=== PATIENT | female | born 1950 ===

== ENCOUNTER 2017-04-01 08:17 | Day surgery (SDC) | payer MEDICARE ==
[~2017-04-01 08:17] MED LIST: Buffered Lidocaine 1% SYRIN* 5 ML/SYR SYRINGE ONE; Famotidine IV* 10 MG/ML 2 ML (20 mg) IV ONE; Famotidine IV* 10 MG/ML 2 ML (20 mg) ONE; Morphine INJ* 2 MG/ML 1 ML SYRINGE IV PRN; PROCHLORPERAZINE INJ 5 MG/ML 2 ML VIAL IV PRN; fentaNYL* 50 MCG/ML 2 ML VIAL (100 MCG VIAL) IV PRN
[2017-04-01 09:32] LABS: Hematocrit 49 % (35-47)
[2017-04-01 09:35] LABS: Comments Flag Yes
[2017-04-01] MEDS ORDERED: fentaNYL* 50 MCG/ML 2 ML VIAL (100 MCG VIAL) ONE (09:35)
[2017-04-01] MEDS ORDERED: KETAMINE HCL* 50 MG/ML 10 ML VIAL ONE (09:35)
[2017-04-01] MEDS ORDERED: Atracurium* 10 MG/ML 10 ML VIAL ONE (09:35)
[2017-04-01] MEDS ORDERED: Midazolam* 1 MG/ML 5 ML VIAL (5 MG) ONE (09:36)
[2017-04-01] MEDS ORDERED: Insulin LISPRO* 1 UNITS UNIT SUBCUT ONE (09:42)
[2017-04-01] MEDS ORDERED: EPINEPHrine AMP 1 MG/ML ONE ×2 (10:15→10:58)
[2017-04-01] MEDS ORDERED: Lidocaine 2% EPI 1:200000 MPF* 20 ML VIAL ONE (10:16)
[2017-04-01] MEDS ORDERED: Neostigmine Methylsulfate* 2 MG/2 ML SYRINGE ONE (10:58)
[2017-04-01] MEDS ORDERED: PROCHLORPERAZINE INJ 5 MG/ML 2 ML VIAL ONE (10:58)
[2017-04-01] MEDS ORDERED: Glycopyrrolate IV* 0.2 MG/ML 1 ML VIAL ONE (10:58)
[2017-04-01] MEDS ORDERED: Phenylephrine INJ* 10 MG/ML 1 ML VIAL (10 MG) ONE (10:58)
[2017-04-01] MEDS ORDERED: Lidocaine 2% PF * 5 ML VIAL ONE (10:58)
[2017-04-01] MEDS ORDERED: Succinylcholine* 20 MG/ML 10 ML VIAL ONE (10:58)
[2017-04-01] MEDS ORDERED: Dexamethasone IV* 4 MG/ML 1 ML (4 MG) ONE (10:58)
[2017-04-01] MEDS ORDERED: Propofol* 10 MG/ML 20 ML BTL IV PUSH ONE (10:58)
[2017-04-01] MEDS ORDERED: EPHEDrine (Pressors)* 50 MG/ML VIAL ONE (10:58)
[2017-04-01] MEDS ORDERED: Ondansetron INJ* 2 MG/ML VIAL ONE (10:58)
[2017-04-01] MEDS ORDERED: Flumazenil* 0.1 MG/ML 5 ML MDV ONE (11:17)
[2017-04-01 14:02] VITALS: BP 144/67
--- NOTE | 2017-04-02 02:40 | OP ---
OPERATIVE REPORT: DATE OF OPERATION: 04/01/17 - [facility] DATE OF : 50 SURGEON: Rio Crain MD SLIP COVER SEAMSTRESS: None. ANESTHESIOLOGIST: Ryne Concepcion MD ANESTHESIA: General. PRE-OP DIAGNOSIS: Neoplasm, larynx, of uncertain behavior. POST-OP DIAGNOSIS: Neoplasm, larynx, of uncertain behavior. OPERATIVE PROCEDURE: Microlaryngoscopy with biopsies. INDICATIONS: This is a 66-year-old woman, who presented in our [place] office with complaints of a several-month history of hoarseness. She does have an active smoking history. On exam in the office, she had a diffusely very inflamed appearing larynx with what appeared to be a more well-defined leukoplakic, slightly exophytic lesion involving the right true vocal cord and false vocal cord with extension to the interarytenoid mucosa. The larynx appeared mobile and glottic airway recently patent. The decision was made to bring the patient to the operating room for microlaryngoscopy with biopsies and possible tracheostomy. ESTIMATED BLOOD LOSS: Negligible. COMPLICATIONS: None. SPECIMENS: Three biopsies were taken, first was the right true vocal cord, second was the right false vocal cord, and the third was interarytenoid mucosa. DESCRIPTION OF PROCEDURE: On 04/01/17, the patient was brought to the operating room, general anesthesia was induced, and a size 6 oral endotracheal tube was placed by the anesthesiologist utilizing a GlideScope. There was no difficulty in passing the tube and table was then turned. The patient was draped and time-out was performed. A variety of laryngoscopes were used, ultimately a sliding Marcial laryngoscope was able to be utilized to get a good view of the glottis. This was suspended then from the [place] stand using a suspension system. Microscope was brought into the field. A microlaryngoscopy injection needle was used to infiltrate a small bleb into the submucosa of the right true vocal cord as well as right false vocal cord regions. The abnormal- appearing mucosa from the right true vocal cord was biopsied. An up cup forceps was used to distract the mucosa laterally and then an angled scissor was used to remove approximately 3-mm length of tissue from the surface of the true vocal cord. A cottonoid pledget was then placed on the vocal cord with epinephrine. Some biopsies were then taken of the right false vocal cord utilizing the same technique and again a pledget was placed with epinephrine for hemostasis. Once good hemostasis was achieved, the laryngoscope was repositioned to facilitate exposure in the interarytenoid mucosa, where there was additional similar leukoplakic change and the area was infiltrated with 2% lidocaine with 1:200,000 epinephrine to raise a bleb and an up cup forceps was then used with an angled scissors to take 2 biopsies of this region. Again, pledget with epinephrine was used for hemostasis. Once hemostasis had been achieved, 2% lidocaine with 2% epinephrine was sprayed on the larynx and into the proximal trachea topically. The excess was then removed. The patient was returned to care of the anesthesiologist. She was aroused from anesthesia, extubated, and delivered to PACU in stable condition. [id number]/[facility] #: [id number] BAN
== END 2017-04-01 14:04 | disposition home or self-care (01) ==
LOC: OR 08:17
PROVIDERS: ATTEND Otolaryngology
DX: D38.0 Neoplasm of uncertain behavior of larynx (principal); F17.210 Nicotine dependence, cigarettes, uncomplicated; I10 Essential (primary) hypertension; E03.9 Hypothyroidism, unspecified; E11.65 Type 2 diabetes mellitus with hyperglycemia; Z79.4 Long term (current) use of insulin; C91.10 Chronic lymphocytic leukemia of B-cell type not having achieved remission
CPT/HCPCS: 36415; 85014; 85018; 88305; J0171; J0330; J0780; J1100; J2250; J2405; J2704; J3010